=== PATIENT | female | born 1950 | race Caucasian/White ===

== ENCOUNTER 2022-10-06 11:30 | Emergency (ER) | payer MEDICARE ==
[2022-10-06 12:55] LABS: BASOPHILS ABSOLUTE AUTO 0.04 K/uL (0.00-0.10); BASOPHILS PERCENT AUTO 0.5 % (0.1-1.3); EOSINOPHILS ABSOLUTE AUTO 0.07 K/uL (0.00-0.40); EOSINOPHILS PERCENT AUTO 0.9 % (0.0-5.4); HEMATOCRIT 38.2 % (34.3-46.0); HEMOGLOBIN 12.1 g/dL (11.2-15.5); IMMATURE GRAN ABSOLUTE AUTO 0.03 K/uL (0.00-0.23); IMMATURE GRAN PERCENT AUTO 0.4 % (0.0-0.7); LYMPHOCYTES ABSOLUTE AUTO 1.42 K/uL (0.8-3.3); LYMPHOCYTES PERCENT AUTO 17.8 % (11.4-47.7); MEAN CORPUSCULAR HEMOGLOBIN 25.2 pg (31.6-35.5); MEAN CORPUSCULAR HGB CONC 31.7 g/dL (31.6-35.5); MEAN CORPUSCULAR VOLUME 79.6 fL (81.4-99.0); MONOCYTES ABSOLUTE AUTO 0.75 K/uL (0.20-0.90); MONOCYTES PERCENT AUTO 9.4 % (3.3-12.6); NEUTROPHILS ABSOLUTE AUTO 5.65 K/uL (1.0-7.6); PLATELET COUNT,PLT 238 K/uL (130-375)
[2022-10-06 13:10] LABS: ANION GAP 5.9 mmol/L (5.0-14.0); CALCIUM 8.4 mg/dL (8.5-10.1); CREATININE 0.8 mg/dL (0.6-1.0); EST CRCL DRUG DOSING (CG) 59.72 mL/min; POTASSIUM,K 3.9 mmol/L (3.6-5.2)
== END 2022-10-06 13:40 | disposition home or self-care (01) ==
LOC: JP.ED 11:30
DX: E83.51 Hypocalcemia (principal); Z86.16 Personal history of COVID-19
CPT/HCPCS: 36415; 80048; 85025; 99284